=== PATIENT | male | born 1970 | race Caucasian/White ===

== ENCOUNTER 2016-08-18 07:22 | Emergency (ER) | payer OTHER ==
[~2016-08-18] VITALS: Ht 167.6 cm; Wt 80.4 kg
[~2016-08-18 07:22] MED LIST: ADULT LOW DOSE81 M1 PO; AMLODIPINE BESYL5 MG PO; ATARAX,VISTARIL25 MG PO; CARVEDILOL6.25 MG PO; COREG6.25 M1 PO; FLEXERIL10 MG PO; GLIPIZIDE10 MG PO; JANUVIA100 MG PO; MOTRIN600 MG PO; NORCO 5/3251 TABLET PO; NOVOLOG 10100 UNITS/ SC; NOVOLOG MI100 UNIT/2 SC; PERCOCET 5/31 TABLET PO; SIMVASTATIN20 MG PO; VENTOLIN HFA18 GM IH; ZESTORETIC 20-1 EAC1 NG; ZESTORETIC 20-1 EAC1 PO
[2016-08-18] MEDS ORDERED: FLEXERIL10 MG PO (09:17)
[2016-08-18] MEDS ORDERED: NAPROSYN500 MG PO (09:17)
[2016-08-18 09:36] VITALS: BP 179/98
== END 2016-08-18 10:06 | disposition home or self-care (01) ==
LOC: EME 07:22
DX: S16.1XXA Strain of muscle, fascia and tendon at neck level, initial encounter (principal); M62.830 Muscle spasm of back; S29.012A Strain of muscle and tendon of back wall of thorax, initial encounter; M25.512 Pain in left shoulder; W06.XXXA Fall from bed, initial encounter; J45.909 Unspecified asthma, uncomplicated; F17.210 Nicotine dependence, cigarettes, uncomplicated
CPT/HCPCS: 73030; 99281; 99284

== ENCOUNTER 2016-11-20 21:27 | Emergency (ER) | payer OTHER ==
[~2016-11-20] VITALS: Ht 172.7 cm; Wt 83.9 kg
[~2016-11-20 21:27] MED LIST changes: +NAPROSYN500 MG PO
[2016-11-20 23:32] VITALS: BP 136/98
== END 2016-11-20 23:33 | disposition home or self-care (01) ==
LOC: EME → EDBD 21:27 → EME 23:33
PROC: 0HQ0XZZ Repair Scalp Skin, External Approach (ICD-10-PCS; principal; 2016-11-20)
DX: S01.01XA Laceration without foreign body of scalp, initial encounter (principal); W01.0XXA Fall on same level from slipping, tripping and stumbling without subsequent striking against object, initial encounter; Y92.003 Bedroom of unspecified non-institutional (private) residence as the place of occurrence of the external cause; F10.129 Alcohol abuse with intoxication, unspecified; I10 Essential (primary) hypertension; E78.5 Hyperlipidemia, unspecified; E11.9 Type 2 diabetes mellitus without complications; Z79.4 Long term (current) use of insulin; Z79.82 Long term (current) use of aspirin; F17.200 Nicotine dependence, unspecified, uncomplicated
CPT/HCPCS: 70450; 99281; 99283; J2405